=== PATIENT | male | born 1940 | race Caucasian/White ===

== ENCOUNTER 2016-11-11 12:17 | Inpatient (IN) | payer OTHER ==
[~2016-11-11] VITALS: Ht 165.1 cm; Wt 97.5 kg
[2016-11-11 13:07] LABS: HEMATOCRIT 37.6 % (38.0-50.0); MCH 29.8 PG (29.0-34.0); MCHC 32.2 G/DL (30.0-36.0); MCV 92.6 FL (86-99); MEAN PLAT.VOLUME 10.1 uM^3 (9.0-12.4); PLATELET COUNT 215 K/uL (156-360); RBC DIS.WIDTH-CV 13.6 % (11.8-14.6); RBC DIS.WIDTH-SD 45.9 % (39-53); RED BLOOD COUNT 4.06 M/uL (4.00-5.50); WHITE BLOOD COUNT 6.8 K/uL (4.1-10.2)
[2016-11-11 13:17] LABS: CHLORIDE 108 mEq/L (99-109); SODIUM 138 mEq/L (136-147)
[2016-11-11 13:19] LABS: GLUCOSE 114 mg/dL (70-99)
[2016-11-11 13:20] LABS: ANION GAP 13 MEQ/L (2-14)
[2016-11-11 13:21] LABS: TOTAL BILIRUBIN 0.7 mg/dL (0.0-1.0)
[2016-11-11 13:22] LABS: ALKALINE PHOSPHATASE 297 IU/L (3-129)
[2016-11-11 13:23] LABS: GFR ESTIMATE (CALCULATED) > 59 mL/min/
[2016-11-11 13:24] LABS: UREA NITROGEN (BUN) 14 mg/dL (9-23)
[2016-11-11 13:26] LABS: LIPASE 382 U/L (1.0-51.0)
[2016-11-11 17:31] LABS: ADD MIUA? YES; BILIRUBIN NEGATIVE; BLOOD NEGATIVE; COLOR YELLOW ((YELLOW)); GLUCOSE (STRIP) NEGATIVE; KETONES NEGATIVE; LEUKOCYTES NEGATIVE; NITRITE NEGATIVE; PROTEIN (STRIP) 30; SPECIFIC GRAVITY 1.013 (1.000-1.030); UROBILINOGEN 0.2 MG/DL (0.2-1.0)
[2016-11-11 17:36] LABS: BACTERIA RARE /HPF; EPITHELIAL CELLS RARE /HPF; MUCUS NONE SEEN /LPF; RED BLOOD CELLS 0-5 /HPF (0-5); UCUL ADDED? NO; WHITE BLOOD CELLS 0-5 /HPF (0-5)
[2016-11-11 18:05] LABS: INTER. NORMALIZED RATIO 1.1; PROTHROMBIN TIME 12.6 SEC (10.2-12.9)
[2016-11-11 18:07] LABS: PTT 33.2 SEC (25-37)
[2016-11-11 18:21] LABS: TRIGLYCERIDES 113 MG/DL (Normal: <150)
[2016-11-11] MEDS ORDERED: ZOLOFT100 MG PO (20:33)
[2016-11-11] MEDS ORDERED: GEMFIBROZIL600 MG PO (20:34)
[2016-11-11] MEDS ORDERED: ZESTRIL5 MG PO (20:34)
[2016-11-11] MEDS ORDERED: VALIUM5 MG PO (20:35)
[2016-11-11] MEDS ORDERED: TERAZOSIN HCL2 MG PO (20:35)
[2016-11-11] MEDS ORDERED: ATORVASTATIN CA10 MG PO (20:35)
[2016-11-11 21:23] VITALS: BP 142/66
[2016-11-11 23:40] VITALS: BP 117/56
[2016-11-12 03:52] VITALS: BP 111/53
[2016-11-12 06:55] LABS: ALKALINE PHOSPHATASE 207 IU/L (3-129); ANION GAP 7 MEQ/L (2-14); CHLORIDE 113 MEQ/L (99-109); GFR ESTIMATE (CALCULATED) > 59 mL/min/; LIPASE 166 U/L (1.0-51.0); POTASSIUM 4.2 MEQ/L (3.7-5.4); SAMPLE HEMOLYSIS CHECK 0; SAMPLE ICTERIC CHECK 0; SAMPLE LIPEMIA CHECK 0; SODIUM 140 MEQ/L (136-147); TOTAL BILIRUBIN 0.5 MG/DL (0.0-1.0); UREA NITROGEN (BUN) 12 mg/dL (9-23)
[2016-11-12 06:57] LABS: GLUCOSE 80 mg/dL (70-99)
[2016-11-12 07:00] VITALS: BP 158/69
[2016-11-12 11:15] VITALS: BP 139/65
== END 2016-11-12 14:27 | disposition home or self-care (01) | DRG 439 ==
LOC: EME 12:17 → 2EAST 16:37 → EDOF 16:37 → ENRESERV 16:40 → 2EAST 20:51
PROVIDERS: Hospitalist
DX: K85.10 Biliary acute pancreatitis without necrosis or infection (principal); E78.5 Hyperlipidemia, unspecified; I10 Essential (primary) hypertension; F17.210 Nicotine dependence, cigarettes, uncomplicated; F41.9 Anxiety disorder, unspecified; E66.9 Obesity, unspecified; K52.9 Noninfective gastroenteritis and colitis, unspecified; J98.11 Atelectasis; H91.90 Unspecified hearing loss, unspecified ear; K80.10 Calculus of gallbladder with chronic cholecystitis without obstruction; K21.9 Gastro-esophageal reflux disease without esophagitis; E11.9 Type 2 diabetes mellitus without complications; Z87.11 Personal history of peptic ulcer disease; Z68.32 Body mass index [BMI] 32.0-32.9, adult; Z88.6 Allergy status to analgesic agent; Z82.3 Family history of stroke; Z82.49 Family history of ischemic heart disease and other diseases of the circulatory system
CPT/HCPCS: 71020; 74177; 76705; 80053; 81003; 83690; 83880; 84478; 85027; 85610; 85730; 93005; 99281; 99285; C9113; J1650; J2405; J7030; J7040; S0028

== ENCOUNTER 2017-01-13 07:23 | Day surgery (SDC) | payer OTHER ==
[~2017-01-13] VITALS: Ht 165.1 cm; Wt 97.5 kg
[~2017-01-13 07:23] MED LIST: LIPITOR10 MG PO; LOPID600 MG PO; TERAZOSIN HCL2 MG PO; VALIUM5 MG PO; ZESTRIL5 MG PO; ZOLOFT100 MG PO
[2017-01-13 08:58] VITALS: BP 156/71
[2017-01-13 12:50] VITALS: BP 126/58
[2017-01-13 16:10] VITALS: BP 129/61
[2017-01-13 19:31] VITALS: BP 117/58
[2017-01-14 00:24] VITALS: BP 103/55
[2017-01-14 04:08] VITALS: BP 111/55
[2017-01-14 07:10] VITALS: BP 131/59
[2017-01-14 07:24] LABS: HEMATOCRIT 35.7 % (38.0-50.0); MCH 30.6 PG (29.0-34.0); MCHC 32.2 G/DL (30.0-36.0); MCV 94.9 FL (86-99); MEAN PLAT.VOLUME 10.1 uM^3 (9.0-12.4); PLATELET COUNT 217 K/uL (156-360); RBC DIS.WIDTH-CV 13.3 % (11.8-14.6); RBC DIS.WIDTH-SD 46.4 % (39-53); RED BLOOD COUNT 3.76 M/uL (4.00-5.50); WHITE BLOOD COUNT 8.2 K/uL (4.1-10.2)
[2017-01-14 07:48] LABS: ALKALINE PHOSPHATASE 62 IU/L (3-129); ANION GAP 8 MEQ/L (2-14); CHLORIDE 106 MEQ/L (99-109); GFR ESTIMATE (CALCULATED) > 59 mL/min/; GLUCOSE 101 mg/dL (70-99); POTASSIUM 3.9 MEQ/L (3.7-5.4); SAMPLE HEMOLYSIS CHECK 0; SAMPLE ICTERIC CHECK 0; SAMPLE LIPEMIA CHECK 0; SODIUM 141 MEQ/L (136-147); UREA NITROGEN (BUN) 22 mg/dL (9-23)
[2017-01-14 07:49] LABS: TOTAL BILIRUBIN 0.4 MG/DL (0.0-1.0)
[2017-01-14] MEDS ORDERED: HYDROCODON-ACE1 EAC7 PO (11:11)
== END 2017-01-14 12:40 | disposition home or self-care (01) ==
LOC: SDC 07:23 → 2EASTP 11:25 → 2SOUTH 11:25 → ENRESERV 11:58 → 2EASTP 12:45
PROVIDERS: Surgery
DX: K80.10 Calculus of gallbladder with chronic cholecystitis without obstruction (principal); K82.8 Other specified diseases of gallbladder; K66.0 Peritoneal adhesions (postprocedural) (postinfection); I10 Essential (primary) hypertension; F41.1 Generalized anxiety disorder; E78.00 Pure hypercholesterolemia, unspecified
CPT/HCPCS: 80053; 85027; 88304; 94760; 94799; G0378; J0330; J1100; J1170; J1644; J1885; J2405; J2710; J3010; S0020